=== PATIENT | female | born 1995 | race Hispanic/Latino ===

== ENCOUNTER 2025-04-26 08:40 | Emergency (ER) | payer OTHER ==
[~2025-04-26] VITALS: Ht 152.4 cm; Wt 54.4 kg
[2025-04-26 08:48] VITALS: TEMP 98.2
[2025-04-26 09:17] LABS: PREGNANCY TEST, URINE NEGATIVE (NEGATIVE)
[2025-04-26] MEDS: KETOROLAC TROMETHAMINE 60 MG/2 ML VIAL IM ONE (09:32)
[2025-04-26 09:36] LABS: LEUKOCYTE ESTERASE ,URINE TRACE (NEGATIVE); PROTEIN,URINE DIPSTICK NEGATIVE (NEGATIVE); URINE UROBILINOGEN 1 mg/dL (0.2 - 1)
[2025-04-26 09:45] LABS: EPITHELIAL CELLS,URINE MANY /LPF; WBC,URINE (MAN) 21-50 /HPF (0-5)
[2025-04-26] MEDS ORDERED: METRONIDAZOLE500 MG PO (10:00)
[2025-04-26 10:05] VITALS: PULSE 72; RESP 16; O2SAT 98
[2025-04-29 21:10] LABS: CHLAMYDIA NUC AMP Negative (Negative)
== END 2025-04-26 10:06 | disposition home or self-care (01) ==
LOC: ER 08:44
DX: R10.2 Pelvic and perineal pain (principal); N76.0 Acute vaginitis
CPT/HCPCS: 81001; 81025; 87086; 87210; 87491; 87591; 99283; J1885